=== PATIENT | female | born 1940 | race Caucasian/White ===

== ENCOUNTER → 2018-10-20 | Outpatient (CLI) | payer MEDICARE, BC ==
[~2018-10-20] MED LIST: ACET-1145 PO; FURO40TA4 PO; LEVO25TA; MET25 PO; POTA8CAP PO; PRED-248 PO; TRA100 PO
--- NOTE | 2018-10-20 17:03 | CONS ---
Date/Time of Note Date/Time of Note DATE: 10/20/18 TIME: 16:54 Assessment/Plan Assessment/Plan Hospital Course 78-year-old post left total hip arthroplasty in 2013. Based on symptoms today I do not believe there is a mechanical issue with the hip or any signs of infection. Her symptoms are most consistent with greater trochanteric bursitis and possible re-tearing of her hip abductors. Her groin pain may be due to lumbar radiculopathy given that she has no pain with range of motion of the hip. At this time Will begin physical therapy for the lumbar spine as well as for greater trochanteric bursitis and IT band tendinitis. Voltaren gel was also prescribed. She will follow-up in 12 weeks. If she is not better further workup will be conducted including CBC, ESR, CRP, and possible advanced imaging. Consultation Date/Type/Reason Admit Date/Time Date of Consultation: Oct 20, 2018 Reason for Consultation Left hip pain Hx of Present Illness This is a 78-year-old female who is presenting with 2 months of left hip pain both groin and lateral hip pain. She is status post left total hip arthroplasty [place] [address] Barclay. Of interest at the time of surgery Dr. Barclay found that the abductors were completely avulsed off the greater trochanter. after the implantation of the hip he did perform a primary repair of the abductor tendons. Postoperatively she did have significant greater trochanteric bursitis. This resolved and she seemed to have insidiously began 2 months ago. Denies fevers and chills. Denies any injury. Pain is mostly lateral. However she does note some groin pain. This pain is not increased and does not occur during ambulation. At times she feels it it occurs when standing for long periods of time. She denies any back pain or numbness and tingling down the leg. Pain ranges 510/10. The pain is described as burning and sharp. She denies a limp. She has tried NSAIDs and ice. Patient denies fever, chills, shortness of breath, chest pain, nausea/vomiting, constipation, diarrhea, numbness, and tingling. Past Medical History Thyroid abnormality Allergies: Coded Allergies: Penicillins (Verified Allergy, Unknown, HIVES/RASHES, 08/02/13) Past Surgical History Bilateral total hip arthroplasty Family History Significant Family History: no pertinent family hx Social History Alcohol Use: rarely Smoking Status: Never smoker Drug Use: none Exam/Review of Systems Vital Signs Vitals Weight: 135 pounds Height: 5 feet 5 inches Temperature: 97.9 Heart Rate: 64 Blood Pressure: 170/72 Respiratory Rate: 14 Exam General: Alert, oriented x3. No Acute Distress. Heart: Regular rate and rhythm. Lungs: No respiratory distress. No accessory muscle use. MUSCULOSKELETAL: Left lower Extremity: Incision well-healed. No skin breakdown, no surrounding erythema. Sensation intact to light touch in a sural, saphenous, deep peroneal, superficial peroneal, medial and lateral plantar nerve distribution. Motor is intact, patient able to dorsiflex and plantarflex ankle and extend and flex great toe. Dorsalis Pedis pulse +2, Brisk capillary refill. Compartments are soft. Exquisite tenderness to palpation of the greater trochanter and proximal IT band. Patient has fluid full range of motion without pain of the hip Rises from seated position without difficulty. Gait: Quick pace. Minimal limp. Minimal Trendelenburg. No gait aids. Imaging Imaging Xrays obtained in clinic today and personally reviewed by myself: AP pelvis and AP/Lat of the left hip demonstrate hip s/p LUCERO with hip reduced. Components in good position and alignment. No signs of wear, osteolysis, loosening, component failure, or fracture. No acute complications. SENIA PRICE MD Oct 20, 2018 17:03
--- NOTE | 2018-10-23 08:11 | RADRPT ---
PROCEDURE: XR left Hip. CLINICAL INDICATION: Hip pain. TECHNIQUE: AP and frog leg lateral views of the left hip were obtained. COMPARISON: 12/03/2014 FINDINGS: There are postsurgical changes of bilateral total hip arthroplasties. The left hip arthroplasty is in tact and well aligned. The alignment is unchanged since the prior exam. The visualized right hip arth roplasty is also intact. No focal osseous demineralization is identified. The bone mineralization is diffusely decreased. 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 IMPRESSION: 1. Postsurgical changes of total left hip arthroplasty, well-aligned. 2. Partially imaged total right hip arthroplasty appears well aligned. RPTAT: [facility] Physician Vasiliy Date Time Electronically viewed and signed by Physician Vasiliy on 10/23/2018 08:11 RF/
== END | disposition home or self-care (01) ==
LOC: HKI 14:43
PROVIDERS: ATTEND Orthopaedic Surgery Adult Reconstructive Orthopaedic Surgery
DX: M25.552 Pain in left hip (principal); Z96.642 Presence of left artificial hip joint; Z88.0 Allergy status to penicillin
CPT/HCPCS: 73502; G0463